=== PATIENT | female | born 2000 | race African-American/Black ===

== ENCOUNTER 2023-10-24 09:11 | Emergency (ER) | payer OTHER, SELFPAY ==
--- NOTE | 2023-10-24 09:57 | ED.SKABFB ---
HPI - Skin/Abscess/Foreign Bdy General Chief complaint: Skin/Abscess/Foreign Body Stated complaint: spider bite? Time Seen by Provider: 10/24/23 09:20 Source: patient Mode of arrival: ambulatory Limitations: no limitations History of Present Illness HPI narrative: This is a 23 year old female that presents to the ER for a possible spider bite to the left upper leg. She did not see or feel a spider bite her, but reports she has a lot of them around her house. Reports the redness and swelling has much improved from yesterday. She did have a small amount of drainage from the area. Denies fevers. Related Data Allergies Allergy/AdvReac Type Severity Reaction Status Date / Time No Known Allergies Allergy Verified 10/24/23 10:07 Review of Systems Review of Systems: CONSTITUTIONAL: Denies fever SKIN: Reports redness and swelling All systems reviewed & are unremarkable except as noted in HPI and below PMFSH Past Medical History Medical History (Updated 10/24/23 @ 11:23 by Cee Aguirre PA-C) No active medical problems Social History Social History (Updated 10/24/23 @ 10:02 by Cee Aguirre PA-C) Smoking status: Never smoker Exam Narrative: GENERAL: Well-appearing, well-nourished, and in no acute distress. HEAD: Normocephalic, atraumatic. EYES: EOMI. CHEST: No respiratory distress. HEART: Regular rate EXTREMITIES: Normal range of motion. No edema. SKIN: Warm, dry, no rash. Mild surrounding redness to a small raised area of induration to the left inner thigh NEURO: No focal deficits. Alert and oriented x3. PSYCH: Normal mood and affect Course Course Emergency Course: Patient wishes to hold off on attempt at I and D at this time. Will trial oral and topical antibiotics, I do not suspect she has a large amount of fluid at this time, but had recommended we make sure there was no abscess Vital Signs Vital signs: Vital Signs Temperature 98.6 F 10/24/23 10:05 Pulse Rate 87 10/24/23 10:05 Respiratory Rate 16 10/24/23 10:05 Blood Pressure 119/71 10/24/23 10:05 Pulse Oximetry 99 10/24/23 10:05 Temperature 98.6 F 10/24/23 10:05 Pulse Rate 87 10/24/23 10:05 Respiratory Rate 16 10/24/23 10:05 Blood Pressure 119/71 10/24/23 10:05 Pulse Oximetry 99 10/24/23 10:05 MDM - Skin/Abscess/Foreign Bdy MDM Narrative Medical decision making narrative: Patient presents to the emergency department for redness and swelling of the left upper leg. Reporting a possible spider bite. She is afebrile and nontoxic appearing. Patient was updated on tetanus vaccination. Very mild redness surrounding a small (1cm) area of induration. Patient wishes to hold off on attempt at I and D at this time. Will trial oral and topical antibiotics, I do not suspect she has a large amount of fluid at this time, but had recommended we make sure there was no abscess. She was given warnings to return to the ER Differential Diagnosis Differential diagnosis: Likely abscess of skin or subcutaneous tissue, cellulitis and insect bites Critical Care Time Critical Care Time Critical Care Time: No Discharge Plan Discharge Clinical Impression: Cellulitis Qualifiers: Site of cellulitis: extremity Site of cellulitis of extremity: lower extremity Laterality: left Qualified Code(s): L03.116 - Cellulitis of left lower limb Patient Disposition: Home, Self-Care Condition: Stable Instructions: Antibiotic Form, Cellulitis (ED) Additional Instructions: Return if symptoms worsen or concerns: any increase in redness, swelling, pain or fever over 101 Take antibiotics as directed. Clean wound with mild soapy water. Apply antibiotic ointment twice daily Follow up with primary care in the next 2-3 days for re-evaluation Prescriptions: New cephalexin 500 mg capsule 500 mg PO Q6H 7 Days Qty: 28 0RF mupirocin 2 % ointment 1 applic topical BID Qty: 15 0RF Follow-up/Referrals: Alexei Bauer
[2023-10-24 10:05] VITALS: BP 119/71; PULSE 87; RESP 16; TEMP 37; O2SAT 99
[2023-10-24] MEDS: TETANUS,DIPHTHERIA,AC PERTUSSIS ADULT (0.5 ML) BOOSTRIX IM (10:07)
[2023-10-24 11:31] VITALS: BP 115/77; PULSE 77; RESP 18; TEMP 36.9; O2SAT 99
== END 2023-10-24 11:32 | disposition home or self-care (01) ==
PROVIDERS: Emergency Provider Physician Assistant
DX: L03.116 Cellulitis of left lower limb (principal); Z23 Encounter for immunization
CPT/HCPCS: 90471; 90715; 99283

== ENCOUNTER 2024-09-14 09:44 | Emergency (ER) | payer SELFPAY ==
--- OUTSIDE RECORDS SUMMARY | 2024-09-14 09:47 | XMS_ITS | Clinical Summary ---
Author Organization [facility] Address [address] [place] [address] Care Team Providers Care Food [employer] Workers Name Role Phone Karen Asif MD Primary Care Provider Source Comments [facility],non-owned Affiliates and Associated Physician Practices is amultiple site organization consisting of ambulatory clinics and hospital sitesin [place], [place], [place] and [place]. This disclosure is being madepursuant to the Care Everywhere program and may not contain all information available regarding this patient. Last updated 17.[facility] Allergies No known active allergies Medications * Be aware that medications may not be up to date on this document. Alwaysverify current medications with the patient. docusate sodium (COLACE) 100 MG capsule Take 1 capsule by mouth 2 times daily 30 capsule 2 01/21/2020 Active Vit-DSS-Fe Fum-FA ( VITAMIN WITH IRON) tablet Take 1 tablet by mouth once daily 90 tablet 2 01/21/2020 Active Resolved Problems Problem Noted Date Diagnosed Date Resolved Date 01/18/2020 01/21/2020 Evaluate anatomy not seen on prior sonogram 01/21/2020 Immunizations Immunization Administration Dates Next Due MMR 01/20/2020(Deferred: See Comment s - Immune) TDAP (7yrs+) 01/21/2020 Family History Medical History Relation Name Comments Bipolar Disorder Mother Relation Name Status Comments Mother Social History Tobacco Use Types Packs/Day Years Used Date Smoking Tobacco: Every Day Smokeless Tobacco: Never Alcohol Use Standard Drinks/Week Comments Yes 0 (1 standard drink = 0.6 oz pur e alcohol) Comments No Sex and Gender Information Value Date Recorded Sex Assigned at Not on file Legal Sex Female 7:57 PM CDT Gender Identity Not on file Sexual Orientation Not on file Last Filed Vital Signs Vital Sign Reading Time Taken Comments Blood Pressure 134/85 01/21/2020 8:50 AM BILLET EXAMINER Pulse 74 01/21/2020 8:50 AM BILLET EXAMINER Temperature 36.9 C (98.4 F) 01/21/2020 8:50 AM BILLET EXAMINER Respiratory Rate 20 01/21/2020 8:50 AM BILLET EXAMINER Oxygen Saturation 100% 01/21/2020 8:50 AM BILLET EXAMINER Inhaled Oxygen Concentration - - Weight 64.4 kg (142 lb) 01/18/2020 10:00 AM BILLET EXAMINER Height 144.8 cm (4' 9) 01/18/2020 12:30 PM BILLET EXAMINER Body Mass Index 30.73 01/18/2020 10:00 AM BILLET EXAMINER Plan of Treatment Health Maintenance Due Date Last Done Comments HIV SCREENING 06/23/2014 HPV VACCINE (1 - 3-dose series) 06/23/2014 CHLAMYDIA/GONORRHEA SCREENING 2015 HEPATITIS C SCREENING 06/19/2017 HEPATITIS B VACCINE (1 of 3 - 19+ 3-dose series) 06/23/2018 COVID-19 VACCINE (1 - 2023-2 5 season) 2023 DEPRESSION SCREENING 02/26/2024 INFLUENZA VACCINE (#1) 2024 DTAP/TDAP/TD VACCINES (2 - T d or Tdap) 01/20/2030 01/21/2020 ZOSTER VACCINE (1 of 2) 06/23/2049 HIB VACCINE Aged Out No longer eligi ble based on patient's age to complete this topic MENINGOCOCCAL (Group B) VACC INE SHARED DECISION-MAKING Aged Out No longer eligibl e based on patient's age to complete this topic MENINGOCOCCAL GROUPS A/C/Y/W VACCINE Aged Out No longer eligible b ased on patient's age to complete this topic PNEUMOCOCCAL VACCINE Aged Out No long er eligible based on patient's age to complete this topic Insurance [place] MEDICAID - [facility] Advance Directives * Full Code (Latest Code Status on File) Date Activated Date Inactivated Comments 01/18/2020 12:11 PM 01/21/2020 1:06 PM * Full Code Date Activated Date Inactivated Comments 01/18/2020 9:59 AM 01/18/2020 12:11 PM Care Teams Food And Drink Factory Workers Relationship Specialty Start Date End Date Karen Asif MD [address], [phone] PCP - General Pediatrics 10/25/17
[2024-09-14 11:08] VITALS: BP 116/68; PULSE 77; RESP 14; TEMP 36.6; O2SAT 100
[2024-09-14 11:14] VITALS: BP 116/68; PULSE 77; RESP 14; TEMP 36.6; O2SAT 100
[2024-09-14 11:16] LABS: Strep Group A RT-PCR NOT DETECTED (Negative)
[2024-09-14 11:28] LABS: Influenza A QL RT-PCR Negative (Negative); Influenza B QL RT-PCR Negative (Negative); RSV RNA, RT-PCR Negative (Negative); SARS-CoV-2 RNA PCR Negative (Negative)
--- OUTSIDE RECORDS SUMMARY | 2024-09-14 11:47 | XMS_ITS | Clinical Summary ---
Author Organization [facility] Address [address] [place] [address] Care Team Providers Care Letter Carrier Name Role Phone Karen Asif MD Primary Care Provider Source Comments [facility],non-owned Affiliates and Associated Physician Practices is amultiple site organization consisting of ambulatory clinics and hospital sitesin [place], [place], [place] and [place]. This disclosure is being madepursuant to the Care Everywhere program and may not contain all information available regarding this patient. Last updated 17.[facility] Allergies No known active allergies Medications * [...] Comments Blood Pressure 134/85 01/21/2020 8:50 AM SODA DIALYZER Pulse 74 01/21/2020 8:50 AM SODA DIALYZER Temperature 36.9 C (98.4 F) 01/21/2020 8:50 AM SODA DIALYZER Respiratory Rate 20 01/21/2020 8:50 AM SODA DIALYZER Oxygen Saturation 100% 01/21/2020 8:50 AM SODA DIALYZER Inhaled Oxygen Concentration - - Weight 64.4 kg (142 lb) 01/18/2020 10:00 AM SODA DIALYZER Height 144.8 cm (4' 9) 01/18/2020 12:30 PM SODA DIALYZER Body Mass Index 30.73 01/18/2020 10:00 AM SODA DIALYZER Plan of Treatment Health Maintenance Due Date [...] complete this topic Insurance [place] MEDICAID - [facility] Advance Directives * Full Code (Latest Code Status on File) Date Activated Date Inactivated Comments 01/18/2020 12:11 PM 01/21/2020 1:06 PM * Full Code Date Activated Date Inactivated Comments 01/18/2020 9:59 AM 01/18/2020 12:11 PM Care Teams Letter Carrier Relationship Specialty Start Date End Date Karen Asif MD [address], [phone] PCP - General Pediatrics 10/25/17
--- NOTE | 2024-09-14 11:48 | ED_ITS ---
HPI - URI/Sore Throat General Chief Complaint: Upper Respiratory Infection Stated Complaint: sore throat, fever Time Seen by Provider: 09/14/24 11:08 Source: patient Mode of arrival: ambulatory Limitations: no limitations History of Present Illness HPI Narrative: Patient is a 24-year-old female who presents the ED with report of a sore throat. Patient reports having sore throat for the past 4 days. Reports she had been feeling some body aches, chills, subjective fevers, but this has mostly resolved. Denies cough or congestion. Denies difficulty breathing or swallowing, just has pain with swallowing. Has been taking Tylenol/ibuprofen for pain. Denies known sick contacts, but does report she was recently at a work event in which she was surrounded by 300+ people. Related Data Allergies Allergy/AdvReac Type Severity Reaction Status Date / Time No Known Allergies Allergy Verified 09/14/24 11:07 Review of Systems Review of Systems: All systems reviewed & are unremarkable except as noted in HPI. All systems reviewed & are unremarkable except as noted in HPI and below PMFSH Past Medical History Medical History No active medical problems Social History Social History Smoking status: Never smoker Exam Narrative: GENERAL: Well appearing, well-nourished, non-toxic, in no acute distress. HEAD: Normocephalic, atraumatic. ENT: Moderate posterior pharynx erythema. Mild hypertrophy of R tonsil, but no exudate, protrusion of soft palate, deviation of uvula. Uvula is otherwise midline and nonedematous. No stridor or trismus. Tolerating secretions. RESPIRATORY: Airway patent, respirations nonlabored. Clear to auscultation bilaterally, no rales, rhonchi, wheezing. CARDIOVASCULAR: Regular rate and rhythm MUSCULOSKELETAL: Moves all extremities. No gross deformities. SKIN: Warm, dry, normal color. NEURO: A&O X3. Speech clear. PSYCHIATRIC: Appropriate mood and affect. Normal interaction. Course Vital Signs Vital signs: Vital Signs Temperature 97.8 F 09/14/24 11:08 Pulse Rate 77 09/14/24 11:08 Respiratory Rate 14 09/14/24 11:08 Blood Pressure 116/68 09/14/24 11:08 Pulse Oximetry 100 09/14/24 11:08 Oxygen Delivery Room Air 09/14/24 11:08 Temperature 97.7 F 09/14/24 12:13 Pulse Rate 80 09/14/24 12:13 Respiratory Rate 17 09/14/24 12:13 Blood Pressure 119/72 09/14/24 12:13 Pulse Oximetry 100 09/14/24 12:13 Oxygen Delivery Room Air 09/14/24 11:08 MDM - URI/Sore Throat MDM Narrative Medical decision making narrative: Four day history of sore throat. Strep, influenza, RSV, COVID negative. No evidence of respiratory distress or compromise. Patient tolerating secretions. No evidence of SERVICE CENTER SPECIALIST on exam, however she did have some enlargement of right tonsil. Given asymmetric tonsillar hypertrophy on exam, will treat for tonsillitis with antibiotics. Given dose of Augmentin in the ED. Prescription sent to pharmacy. Discussed continued supportive therapy. Discussed return precautions. She agrees with plan. Discharged in stable condition. Medical Records Attestation: I reviewed the patient's medical records. Lab Data Attestation: I reviewed the patient's lab results. Labs: Lab Results 09/14/24 Range/Units 10:46 Influenza A (RT-PCR) Negative (Negative) Influenza B (RT-PCR) Negative (Negative) RSV (RT-PCR) Negative (Negative) SARS-CoV-2 RNA (RT-PCR) Negative (Negative) Group A Strep (PCR) Not detected (Negative) Discharge Plan Discharge Clinical Impression: Acute tonsillitis Qualifiers: Pharyngitis/tonsillitis etiology: unspecified etiology Qualified Code(s): J03.90 - Acute tonsillitis, unspecified Patient Disposition: Home Condition: Stable Instructions: Antibiotic Form, Tonsillitis (ED) Additional Instructions: Take antibiotics as prescribed for tonsillitis. Continue Tylenol/ibuprofen as needed for pain. Stay well hydrated. You may use [id number] throat lozenges, DayQuil/NyQuil, teas with honey as needed for additional symptom relief. Follow-up with your primary care doctor for further evaluation if needed. Return to the ED for worsening or severe symptoms, difficulty breathing or swallowing, unable to keep down food or drink, persistent fevers, or any other symptoms of concern. Patient Language: Uruguayan Prescriptions: New amoxicillin-pot clavulanate 875-125 mg tablet 1 tablet PO Q12H 7 Days Qty: 14 0RF No Action cephalexin 500 mg capsule 500 mg PO Q6H 7 Days Qty: 28 0RF mupirocin 2 % ointment 1 applic topical BID Qty: 15 0RF Follow-up/Referrals: UNKNOWN,DOCTOR [Primary Care Provider] - Time of Disposition: 12:05
[2024-09-14] MEDS: ACETAMINOPHEN 500 MG TABLET 1000 MG PO (11:54)
[2024-09-14 12:13] VITALS: BP 119/72; PULSE 80; RESP 17; TEMP 36.5; O2SAT 100
== END 2024-09-14 12:14 | disposition home or self-care (01) ==
PROVIDERS: Emergency Provider Physician Assistant
DX: J03.90 Acute tonsillitis, unspecified (principal); Z20.822 Contact with and (suspected) exposure to COVID-19
CPT/HCPCS: 87637; 87651; 99283; A9270